=== PATIENT | male | born 1970 | race Caucasian/White ===

== ENCOUNTER 2016-08-29 22:08 | Emergency (ER) | payer MEDICAID ==
[~2016-08-29] VITALS: Ht 177.8 cm; Wt 74.8 kg
--- NOTE | 2016-08-29 22:24 | PHYS DOC ---
Past Medical History Past Medical History: COPD Adult General Chief Complaint Chief Complaint: SHORTNESS OF BREATH HPI HPI Patient is a 45 year old gentleman who presents today by EMS secondary to being found wandering around short of breath and wheezing at in the field. Patient reports he does have a history of COPD and this feels like his COPD exacerbation for him. Patient does have a primary care physician however he does not recall who her name is. Patient reports that he takes Advair and albuterol as needed but did not have it with him right now is his backpack is back in the [place]. Patient has any history of coronary disease, hypertension, diabetes, CHF. Patient denies any abdominal surgeries in the past. Patient reports he does smoke he does drink and he does do drugs. Patient's last drug use was methamphetamine 2 days ago. Patient reports he did smoke marijuana earlier today. Patient reports that he had 2 large beers this morning. Patient reports she also has a history of hepatitis C and degenerative disc disease. Patient reports she's had a nonproductive cough that occurs whenever he walks really fast otherwise no cough. Patient has any chest pain or abdominal pain. Patient has a nausea vomiting or diarrhea. Patient has any fevers shakes chills. Patient reports his last hospital evaluation was approximately 2 months for COPD. Patient reports that he is homeless and usually stays at [facility] were [place] of [place]. Upon arrival to the ER patient's vital signs were all stable. Patient's temperature was 97.5, pulse ox is 98% on room air. Patient is alert awake and oriented 3. Patient's lung exam is clear. Patient reports that he feels significantly improved after receiving 2 appearance by EMS prior to arrival. The remainder the patient's physical exam was unremarkable he is alert awake oriented 3. Patient's lung exam currently is clear. Patient's abdominal exam is soft nontender no rebound or guarding. Patient has no calf tenderness or calf edema. Patient has no JVD. Patient has no S3. A/P #1 short of breath: Most likely secondary to a COPD exacerbation. Patient reports even walk around outside and started to feel short of breath. Patient did not utilize his own albuterol MDIs prior to EMS arrival. EMS arrived and they had given him 2 albuterol nebs prior to transfer to the ED here. Patient reports that his breathing is significantly improved and he is close to his baseline at this time. We will obtain basic labs on the patient chest x-ray and we will go ahead and give him 125 mg of IV site Medrol and reevaluate him in the ER. Patient is not exhibiting any signs or symptoms of be consistent with acute respiratory failure at this time. Patient has no evidence of pneumonia, pe , CHF, [place]. Review of Systems Review of Systems Constitutional: Denies fever or chills [] Eyes: Denies change in visual acuity, redness, or eye pain [] All other review systems are negative except as documented in the history of present illness. Current Medications Current Medications Current Medications Medications (Trade) Dose Ordered Sig/Anne-Marie Start Time Stop Time Status Last Admin Dose Admin Methylprednisolone Sodium Succinate 125 mg 125 mg 1X ONCE 08/29/16 23:00 08/29/16 23:01 Sodium Chloride (Iv Sodium Chloride 0.9% 1000ml Bag) 1,000 ml @ 1,000 mls/hr 1X ONCE 08/29/16 23:00 08/29/16 23:59 Allergies Allergies Allergies Coded Allergies Type Severity Reaction Last Updated Verified Penicillins Allergy Intermediate 08/29/16 Yes Physical Exam Physical Exam Constitutional: Well developed, well nourished, no acute distress, non-toxic appearance. [] HENT: Normocephalic, atraumatic, bilateral external ears normal, oropharynx moist, no oral exudates, nose normal. [] Eyes: PERRLA, EOMI, conjunctiva normal, no discharge. [] Neck: Normal range of motion, no tenderness Cardiovascular:Heart rate regular rhythm, Lungs & Thorax: Bilateral breath sounds clear to auscultation . Patient ablating the ER without any dyspnea. Patient feels much improved. [] Abdomen: Bowel sounds normal, soft, no tenderness, no masses, no pulsatile masses. [] Skin: Warm, dry, no erythema, Back: No tenderness, no CVA tenderness. [] Extremities: No tenderness, no cyanosis, no clubbing, Neurologic: Alert and oriented X 3, normal motor function, normal sensory function, no focal deficits noted. [] Psychologic: Affect normal, judgement normal, mood normal. [] Current Patient Data Vital Signs Vital Signs Date Time Temp Pulse Resp B/P Pulse Ox O2 Delivery O2 Flow Rate FiO2 08/29/16 22:08 97.5 107 17 113/82 98 Room Air 97.5 Lab Values Laboratory Tests Test 08/29/16 22:37 White Blood Count 8.6x10^3/uL (4.0-11.0) Red Blood Count 5.13x10^6/uL (4.30-5.70) Hemoglobin 16.8g/dL (13.0-17.5) Hematocrit 51.3% (39.0-53.0) Mean Corpuscular Volume 100fL (79-100) Mean Corpuscular Hemoglobin 33pg (25-35) Mean Corpuscular Hemoglobin Concent 33g/dL (31-37) Red Cell Distribution Width 16.1% (11.5-14.5) H Platelet Count 200x10^3/uL (140-400) Neutrophils (%) (Auto) 79% (31-73) H Lymphocytes (%) (Auto) 12% (24-48) L Monocytes (%) (Auto) 8% (0-9) Eosinophils (%) (Auto) 0% (0-3) Basophils (%) (Auto) 0% (0-3) Neutrophils # (Auto) 6.8x10^3uL (1.8-7.7) Lymphocytes # (Auto) 1.0x10^3/uL (1.0-4.8) Monocytes # (Auto) 0.7x10^3/uL (0.0-1.1) Eosinophils # (Auto) 0.0x10^3/uL (0.0-0.7) Basophils # (Auto) 0.0x10^3/uL (0.0-0.2) Laboratory Tests 08/29/16 22:37 EKG EKG [] Radiology/Procedures Radiology/Procedures [] Course & Med Decision Making Course & Med Decision Making Pertinent Labs and Imaging studies reviewed. (See chart for details) [] Dragon Disclaimer Dragon Disclaimer This electronic medical record was generated, in whole or in part, using a voice recognition dictation system. Departure Departure Impression: Primary Impression: COPD exacerbation Additional Impressions: Homelessness Methamphetamine abuse Alcohol abuse Tobacco abuse Disposition: 01 HOME, SELF-CARE Condition: IMPROVED Patient Instructions: Chronic Obstructive Pulmonary Disease Exacerbation Additional Instructions: Please follow up with your family doctor for reevaluation of your COPD. Return to the ER if you have any further questions concerns or problems. Scripts Prednisone 50 Mg Tablet1 Tab PO DAILY #5 TAB Prov:YOLANDA DHILLON MD 08/29/16 Albuterol Sulfate (Ventolin Hfa Inhaler)18 Gm Hfa.aer.ad2 Puff INH QID PRN WHEEZING #1 INHALER NS Prov:YOLANDA DHILLON MD 08/29/16 Problem Qualifiers YOLANDA DHILLON MD Aug 29, 2016 22:24
[2016-08-29 22:40] VITALS: BP 135/80
[2016-08-29 22:46] LABS: BASO % 0 % (0-3); EOS % 0 % (0-3); HEMATOCRIT 51.3 % (39.0-53.0); HEMOGLOBIN 16.8 g/dL (13.0-17.5); LYMPH % 12 % (24-48); MEAN CORPUSCULAR HEMOGLOBIN 33 pg (25-35); MEAN CORPUSCULAR HGB CONC 33 g/dL (31-37); MEAN CORPUSCULAR VOLUME 100 fL (79-100); MONO % 8 % (0-9); NEUT % 79 % (31-73); PLATELET COUNT 200 x10^3/uL (140-400); RED BLOOD COUNT 5.13 x10^6/uL (4.30-5.70); RED CELL DISTRIBUTION WIDTH 16.1 % (11.5-14.5); WHITE BLOOD COUNT 8.6 x10^3/uL (4.0-11.0)
[2016-08-29] MEDS ORDERED: PRED50TA PO (22:54)
[2016-08-29] MEDS ORDERED: VENTOLIN HFA18 GM INH (22:54)
[2016-08-29 22:55] LABS: CALCIUM 9.6 mg/dL (8.5-10.1); CREATININE 1.3 mg/dL (0.7-1.3); GFR 59.4
[2016-08-29] MEDS ORDERED: IV NORMAL SALINE 1000ML BAG 1,000 ML IV ONE (23:00)
[2016-08-29] MEDS ORDERED: methylPREDNISolone SOD SUCC PF 125 MG/2 ML VIAL. IV ONE (23:00)
--- NOTE | 2016-08-30 08:24 | RAD ---
CHEST AP ONLY Clinical Indication: copd Comparison: None. Technique: Portable upright AP view the chest is obtained. Findings: No focal consolidation, pleural effusion or pneumothorax is seen. Cardiomediastinal silhouette is within normal limits of size. Visualized osseous structures and overlying soft tissues demonstrate no acute finding. IMPRESSION: No focal consolidation or acute radiographic finding.
== END 2016-08-29 23:27 | disposition home or self-care (01) ==
LOC: ER 22:08
DX: J44.1 Chronic obstructive pulmonary disease with (acute) exacerbation (principal); I11.0 Hypertensive heart disease with heart failure; I50.9 Heart failure, unspecified; E11.9 Type 2 diabetes mellitus without complications; I25.10 Atherosclerotic heart disease of native coronary artery without angina pectoris; F12.10 Cannabis abuse, uncomplicated; F15.10 Other stimulant abuse, uncomplicated; F17.200 Nicotine dependence, unspecified, uncomplicated; Z98.890 Other specified postprocedural states; Z88.0 Allergy status to penicillin
CPT/HCPCS: 36415; 71010; 80048; 84484; 85027; 96374; 99285; J2930; J7030